=== PATIENT | female | born 1965 | race Caucasian/White ===

== ENCOUNTER → 2019-04-03 | Outpatient (CLI) | payer BC ==
[2019-04-03 15:49] LABS: Basophils # (A) 0.1 k/uL (0-0.2); Basophils % (A) 0 %; Eosinophils # (A) 0.2 k/uL (0-0.7); Eosinophils % (A) 2 %; HCT 42.8 % (34.0-46.0); HGB 14.2 gm/dL (11.4-16.0); Lymphocytes # (A) 3.7 k/uL (1.0-4.8); Lymphocytes % (A) 33 %; MCHC 33.3 g/dL (31.0-37.0); MCV 93.1 fL (80.0-100.0); Mean Platelet Volume 6.4; Monocytes # (A) 0.6 k/uL (0-1.0); Monocytes % (A) 5 %; Neutrophils # (A) 6.6 k/uL (1.3-7.7); Neutrophils % (A) 58 %; Platelet Count 326 k/uL (150-450); RBC 4.59 m/uL (3.80-5.40); RDW 13.2 % (11.5-15.5); WBC 11.3 k/uL (3.8-10.6)
== END | disposition home or self-care (01) ==
LOC: LABPAT 15:16
PROVIDERS: ATTEND Surgery
DX: Z01.818 Encounter for other preprocedural examination (principal); K21.0 Gastro-esophageal reflux disease with esophagitis
CPT/HCPCS: 36415; 85025; 93005

== ENCOUNTER 2019-04-06 07:34 | Day surgery (SDC) | payer BC ==
[2019-04-03 12:13] VITALS: BMI 39.0
[~2019-04-06 07:34] MED LIST: LACTATED RINGERS 1,000 ML IV SCH; LIDOCAINE 1% 20 ML VIAL (10MG/ML) FOR IV START INTRADERMA PRN
[2019-04-06 07:52] VITALS: TEMP 97.6
[2019-04-06] MEDS ORDERED: LACTATED RINGERS 1,000 ML IV ONE (07:53)
[2019-04-06] MEDS ORDERED: PROPOFOL 10 MG/ML 20 ML VIAL IV ONE (08:36)
--- NOTE | 2019-04-06 08:43 | P.GSHP ---
History of Present Illness H&P Date: 04/06/19 Chief Complaint: GERD This a 53-year-old female referred from Dr. Palacio. Patient has had long- standing problems with GERD. She presents today for EGD. Past Medical History Past Medical History: Hyperlipidemia, Hypertension, Osteoarthritis (OA), Thyroid Disorder Additional Past Medical History / Comment(s): HIATAL HERNIA History of Any Multi-Drug Resistant Organisms: None Reported Past Surgical History: Orthopedic Surgery, Tubal Ligation Additional Past Surgical History / Comment(s): HAND SX. HAVING EGD 04/06/19. COLONOSCOPY Past Anesthesia/Blood Transfusion Reactions: No Reported Reaction Smoking Status: Never smoker - Past Family History Sister(s) Family Medical History: Cancer Medications and Allergies Home Medications Medication Instructions Recorded Confirmed Type DULoxetine HCL [Cymbalta] 30 mg PO DAILY 12/23/15 04/03/19 History Enalapril/Hydrochlorothiazide 1 each PO DAILY 12/23/15 04/03/19 History [Vaseretic 10-25 mg] Levothyroxine Sodium [Synthroid] 112 mcg PO DAILY 12/23/15 04/03/19 History Simvastatin [Zocor] 20 mg PO HS 12/23/15 04/03/19 History HYDROcodone/APAP 7.5-325MG [[place] 1 tab PO Q6HR PRN 12/24/15 04/03/19 History 7.5-325] Allergies Allergy/AdvReac Type Severity Reaction Status Date / Time No Known Allergies Allergy Verified 04/03/19 12:01 Surgical - Exam Vital Signs Temp Pulse Resp BP Pulse Ox 97.6 F 82 18 145/75 97 04/06/19 07:51 04/06/19 07:51 04/06/19 07:51 04/06/19 07:51 04/06/19 07:51 - General well developed, well nourished, no distress - Eyes PERRL - ENT normal pinna - Neck no masses - Respiratory normal expansion - Cardiovascular Rhythm: regular - Abdomen Abdomen: soft, non tender Assessment and Plan Assessment: GERD. We'll perform EGD.
--- NOTE | 2019-04-06 08:49 | P.OP ---
Date of Procedure: 04/06/19 Preoperative Diagnosis: GERD Postoperative Diagnosis: Antral gastritis Moderate size hiatal hernia Mild esophagitis Procedure(s) Performed: EGD Anesthesia: MAC Surgeon: Dave Beard Pathology: other (Antrum, esophagus) Condition: stable Disposition: PACU Description of Procedure: Patient's placed on the endoscopy table lateral position. She received IV sedation. The gastroscope placed oropharynx and passed in the esophagus and stomach. Scope then placed through the pylorus. The first and second portion of the duodenum. Normal. Scope summer back the antrum this appeared mildly inflamed a biopsies performed. Scope was unretroflexed and remainder stomach appeared normal. The patient had a moderate size hiatal hernia. The GE junction was at 37 cm. The distal esophagus appeared mildly inflamed. Biopsies performed. The proximal esophagus appeared normal. Scope withdrawn for patient .
[2019-04-06 08:58] VITALS: RESP 16
[2019-04-06 09:17] VITALS: BP 115/77; PULSE 70
== END 2019-04-06 09:35 | disposition home or self-care (01) ==
LOC: ORWHC2ENDO 07:34
PROVIDERS: ATTEND Surgery
DX: K21.0 Gastro-esophageal reflux disease with esophagitis (principal); K29.50 Unspecified chronic gastritis without bleeding; K44.9 Diaphragmatic hernia without obstruction or gangrene; R94.31 Abnormal electrocardiogram [ECG] [EKG]; I10 Essential (primary) hypertension; E78.5 Hyperlipidemia, unspecified; M19.90 Unspecified osteoarthritis, unspecified site; E07.9 Disorder of thyroid, unspecified; K08.89 Other specified disorders of teeth and supporting structures; Z98.890 Other specified postprocedural states; Z98.51 Tubal ligation status; Z80.9 Family history of malignant neoplasm, unspecified; Z79.899 Other long term (current) drug therapy; Z79.890 Hormone replacement therapy; Z79.891 Long term (current) use of opiate analgesic
CPT/HCPCS: 88305; 43239; J2704

== ENCOUNTER 2019-04-09 07:40 | Inpatient (IN) | payer BC ==
[~2019-04-09 07:40] MED LIST changes: +DEXAMETHASONE SOD PHOSPHATE 10 MG/ML 1 ML VIAL IV ONE; +HEPARIN SODIUM,PORCINE 5,000 UNIT/ML 1 ML VIAL SQ ONE; +HYDROmorphone 0.5 MG/0.5 ML SYRINGE IVP PRN; -LACTATED RINGERS 1,000 ML IV SCH; +MIDAZOLAM 2 MG/2 ML VIAL IV PRN; +ONDANSETRON 4 MG/2 ML VIAL IVP ONE; +SCOPOLAMINE 1.5MG/72HR PATCH TRANSDERM ONE
[2019-04-09] MEDS ORDERED: FAMOTIDINE 20 MG/2 ML VIAL IV ONE (08:25)
[2019-04-09] MEDS: LACTATED RINGERS 1,000 ML IV SCH (08:25)
--- NOTE | 2019-04-09 08:45 | P.GSHP ---
History of Present Illness H&P Date: 04/09/19 Chief Complaint: GERD Some 53-year-old female referred from Dr. Palacio.The patient has had long- standing problems with reflux esophagitis. The patient underwent recent EGD is found have evidence of esophagitis. Patient has been well informed on the procedure of laparoscopic Payal fundoplication. The patient is aware the risk of the conversion to the open procedure, risk of injury to the stomach, liver and spleen. The patient is also a risk of recurrent GERD and dysphagia symptoms. The patient understands there is a postoperative diet of full liquids for 2 weeks after surgery. Past Medical History Past Medical History: Hyperlipidemia, Hypertension, Osteoarthritis (OA), Thyroid Disorder Additional Past Medical History / Comment(s): HIATAL HERNIA History of Any Multi-Drug Resistant Organisms: None Reported Past Surgical History: Orthopedic Surgery, Tubal Ligation Additional Past Surgical History / Comment(s): HAND SX. HAVING EGD 04/06/19. COLONOSCOPY Past Anesthesia/Blood Transfusion Reactions: No Reported Reaction Smoking Status: Never smoker - Past Family History Sister(s) Family Medical History: Cancer Medications and Allergies Home Medications Medication Instructions Recorded Confirmed Type DULoxetine HCL [Cymbalta] 30 mg PO DAILY 12/23/15 04/03/19 History Enalapril/Hydrochlorothiazide 1 each PO DAILY 12/23/15 04/03/19 History [Vaseretic 10-25 mg] Levothyroxine Sodium [Synthroid] 112 mcg PO DAILY 12/23/15 04/03/19 History Simvastatin [Zocor] 20 mg PO HS 12/23/15 04/03/19 History HYDROcodone/APAP 7.5-325MG [[place] 1 tab PO Q6HR PRN 12/24/15 04/03/19 History 7.5-325] Allergies Allergy/AdvReac Type Severity Reaction Status Date / Time No Known Allergies Allergy Verified 04/03/19 12:01 Surgical - Exam Vital Signs Temp Pulse Resp BP Pulse Ox 98.3 F 81 16 147/73 95 04/09/19 08:25 04/09/19 08:25 04/09/19 08:25 04/09/19 08:25 04/09/19 08:25 - General well developed, well nourished, no distress - Eyes PERRL - ENT normal pinna - Neck no masses - Respiratory normal expansion - Cardiovascular Rhythm: regular - Abdomen Abdomen: soft, non tender Assessment and Plan Assessment: GERD. We'll perform laparoscopic Payal fundal plication.
[2019-04-09] MEDS ORDERED: GLYCOPYRROLATE 0.2 MG/ML 2 ML VIAL ONE (09:03)
[2019-04-09] MEDS ORDERED: NEOSTIGMINE 1 MG/ML 10 ML VIAL ONE (09:03)
[2019-04-09] MEDS ORDERED: SUCCINYLCHOLINE CHLORIDE 100 MG/5 ML SYR IV ONE (09:03)
[2019-04-09] MEDS ORDERED: KETAMINE 10 MG/ML 20 ML VIAL ONE (09:03)
[2019-04-09] MEDS ORDERED: fentaNYL (PF) 50 MCG/ML 2 ML AMP ONE (09:03)
[2019-04-09] MEDS ORDERED: PROPOFOL 10 MG/ML 20 ML VIAL IV ONE (09:03)
[2019-04-09] MEDS ORDERED: LIDOCAINE 1% INJ 10MG/ML (20 ML MDV) ONE (09:03)
[2019-04-09] MEDS ORDERED: MIDAZOLAM 2 MG/2 ML VIAL ONE (09:03)
[2019-04-09] MEDS ORDERED: ROCURONIUM BROMIDE 10 MG/ML 10 ML VIAL IV ONE (09:03)
[2019-04-09] MEDS ORDERED: BUPIVACAIN-EPI 0.25%-1:200,000 30 ML VIAL SQ ONE (09:35)
[2019-04-09] MEDS ORDERED: ONDANSETRON 4 MG/2 ML VIAL IVP PRN (10:09)
--- NOTE | 2019-04-09 10:09 | P.OP ---
Date of Procedure: 04/09/19 Preoperative Diagnosis: GERD Postoperative Diagnosis: GERD Procedure(s) Performed: Laparoscopic Payal fundal plication Anesthesia: AMIEA Surgeon: Dave Beard Estimated Blood Loss (ml): 5 Pathology: none sent Condition: stable Disposition: PACU Description of Procedure: Harmonic Payal
[2019-04-09] MEDS: METOCLOPRAMIDE 5 MG/ML 2 ML VIAL IVP SCH ×2 (11:50→19:32)
[2019-04-09 15:08] VITALS: BMI 40.8
--- NOTE | 2019-04-09 15:55 | P.CONS ---
History of Present Illness - Reason for Consult Management of hypertension - History of Present Illness Patient is pleasant 53-year-old female admitted for elective nissin's fundoplication patient's oxacillin underwent surgery patient is complaining of some discomfort in the epigastric area. Patient denied any fever chills nausea vomiting at this time patient didn't pass gas yet. Patient does have history of hypertension did not take her and have his medications today and her blood pressure is expected to be lower. Review of Systems REVIEW OF SYSTEMS: CONSTITUTIONAL: No fever, no malaise, no fatigue. HEENT: No recent visual problems or hearing problems. Denied any sore throat. CARDIOVASCULAR: No chest pain, orthopnea, PND, no palpitations, no syncope. PULMONARY: No shortness of breath, no cough, no hemoptysis. GASTROINTESTINAL: No diarrhea, no nausea, no vomiting, no abdominal pain. NEUROLOGICAL: No headaches, no weakness, no numbness. HEMATOLOGICAL: Denies any bleeding or petechiae. GENITOURINARY: Denies any burning micturition, frequency, or urgency. MUSCULOSKELETAL/RHEUMATOLOGICAL: Denies any joint pain, swelling, or any muscle pain. ENDOCRINE: Denies any polyuria or polydipsia. The rest of the 14-point review of systems is negative. Past Medical History Past Medical History: Hyperlipidemia, Hypertension, Osteoarthritis (OA), Thyroid Disorder Additional Past Medical History / Comment(s): HIATAL HERNIA History of Any Multi-Drug Resistant Organisms: None Reported Past Surgical History: Orthopedic Surgery, Tubal Ligation Additional Past Surgical History / Comment(s): HAND SX. HAVING EGD 04/06/19. COLONOSCOPY Past Anesthesia/Blood Transfusion Reactions: No Reported Reaction Past Psychological History: No Psychological Hx Reported Smoking Status: Never smoker Past Alcohol Use History: None Reported Past Drug Use History: None Reported - Past Family History Sister(s) Family Medical History: Cancer Medications and Allergies Home Medications Medication Instructions Recorded Confirmed Type DULoxetine HCL [Cymbalta] 30 mg PO DAILY 12/23/15 04/03/19 History Enalapril/Hydrochlorothiazide 1 each PO DAILY 12/23/15 04/03/19 History [Vaseretic 10-25 mg] Levothyroxine Sodium [Synthroid] 112 mcg PO DAILY 12/23/15 04/03/19 History Simvastatin [Zocor] 20 mg PO HS 12/23/15 04/03/19 History HYDROcodone/APAP 7.5-325MG [[place] 1 tab PO Q6HR PRN 12/24/15 04/03/19 History 7.5-325] Allergies Allergy/AdvReac Type Severity Reaction Status Date / Time No Known Allergies Allergy Verified 04/03/19 12:01 Physical Exam Vitals: Vital Signs Temp Pulse Pulse Resp BP Pulse Ox 04/09/19 15:06 18 04/09/19 13:05 54 L 14 155/85 98 04/09/19 12:35 54 L 14 148/90 94 L 04/09/19 12:05 54 L 14 155/85 98 04/09/19 11:50 57 L 14 140/80 95 04/09/19 11:35 51 L 14 148/90 93 L 04/09/19 11:20 98.1 F 50 L 14 153/79 94 L 04/09/19 11:02 52 L 16 146/69 92 L 04/09/19 10:49 49 L 16 149/67 96 04/09/19 10:34 53 L 16 151/70 99 04/09/19 10:19 97 F L 79 17 164/98 96 04/09/19 08:25 98.3 F 81 16 147/73 95 Intake and Output 04/09/19 04/09/19 04/09/19 06:59 14:59 22:59 Intake Total 1350 Output Total 5 Balance 1345 Intake: IV 1350 Output: Estimated Blood Loss 5 Other: Weight 95 kg 95 kg PHYSICAL EXAMINATION: GENERAL: The patient is alert and oriented x3, not in any acute distress. Well developed, well nourished. HEENT: Pupils are round and equally reacting to light. EOMI. No scleral icterus. No conjunctival pallor. Normocephalic, atraumatic. No pharyngeal erythema. No thyromegaly. CARDIOVASCULAR: S1 and S2 present. No murmurs, rubs, or gallops. PULMONARY: Chest is clear to auscultation, no wheezing or crackles. ABDOMEN: Soft, nontender, nondistended, normoactive bowel sounds. No palpable organomegaly. MUSCULOSKELETAL: No joint swelling or deformity. EXTREMITIES: No cyanosis, clubbing, or pedal edema. NEUROLOGICAL: Gross neurological examination did not reveal any focal deficits. SKIN: No rashes. Assessment and Plan Plan: Hypertension: Patient blood pressure is expected to low post surgery because of which I'll hold off on antidepressant medications and depending on her blood pressure tomorrow we'll start as needed. Continue with IV fluids at this time -Status post Payal fundoplication postoperative day 0 pain management and due to prophylaxis per primary service -hyperlipidemia - hypothyroidism Medication reconciliation was done and appropriate to her home medications were resumed
[2019-04-09] MEDS: HYDROmorphone 1 MG/ML 1 ML SYRINGE IVP PRN ×2 (16:08→20:43)
[2019-04-09] MEDS: D5-0.45% NACL WITH KCL 20MEQ/L 1,000 ML IV SCH ×2 (16:09→19:37)
--- NOTE | 2019-04-09 16:25 | FL ---
EXAMINATION TYPE: FL esophagus cervic/pharynx DATE OF EXAM: 04/09/2019 LIMITED UGI-ESOPHAGRAM: CLINICAL HISTORY: Reflux, status post Eliseo fundoplication TECHNIQUE: Limited esophagram is performed utilizing 30 oz of Isovue-370. A total of 29 seconds of f luoroscopic time was utilized during procedure. Images: 5 FINDINGS: The patient swallowed contrast without difficulty or delay. Esophageal peristalsis and mo tility are within normal limits. There is good flow of contrast along the diaphragmatic hiatus into t he stomach, there is no evidence of contrast extravasation to suggest leak. No persistent hiatal miles ia is seen. IMPRESSION: No evidence of leak or significant obstruction status post Eliseo fundoplication surgery earlier today.
[2019-04-09] MEDS ORDERED: ATORVASTATIN 10 MG TAB PO SCH (21:00)
[2019-04-10] MEDS: METOCLOPRAMIDE 5 MG/ML 2 ML VIAL IVP SCH ×3 (00:53→13:09)
[2019-04-10] MEDS: D5-0.45% NACL WITH KCL 20MEQ/L 1,000 ML IV SCH ×2 (00:53→10:55)
[2019-04-10] MEDS: HYDROmorphone 1 MG/ML 1 ML SYRINGE IVP PRN ×2 (00:54→06:36)
[2019-04-10 05:57] VITALS: RESP 18
[2019-04-10] MEDS ORDERED: LEVOTHYROXINE 112 MCG TAB PO SCH (06:30)
[2019-04-10] MEDS: LACTATED RINGERS 1,000 ML IV SCH (06:37)
[2019-04-10] MEDS ORDERED: HYDROcodone/APAP 7.5-325MG 1 EACH TAB PO PRN (08:01)
[2019-04-10] MEDS ORDERED: DULoxetine HCL 30 MG CAPSULE.DR PO SCH (09:00)
[2019-04-10] MEDS ORDERED: ENOXAPARIN 40 MG/0.4 ML SYRINGE SQ SCH (09:00)
--- NOTE | 2019-04-10 11:58 | P.PN ---
Subjective Progress Note Date: 04/10/19 Principal diagnosis: Patient is pleasant 53-year-old female admitted for elective nissin's fundoplication patient's oxacillin underwent surgery patient is complaining of some discomfort in the epigastric area. Patient denied any fever chills nausea vomiting at this time patient didn't pass gas yet. Patient does have history of hypertension did not take her hypertensive medications today and her blood pressure is expected to be lower. 04/10/2019 Patient is sitting up in bed in no acute distress no acute overnight issues. Patient continues to have some mild epigastric discomfort but states it is much better than yesterday. Instructed the patient to continue with incentive spirometer at least 10 times every hour while awake. Patient's blood pressure slightly elevated and will resume her home medications. Patient is expected to be discharged today. Currently patient denies any chest pain, shortness of breath, or palpitations. Patient is afebrile. Patient denies any nausea or vomiting and has been tolerating diet. Objective - Vital Signs Vital signs: Vital Signs Temp 98.2 F 04/10/19 00:54 Pulse 89 04/10/19 04:05 Resp 18 04/10/19 04:05 BP 153/96 04/10/19 04:05 Pulse Ox 93 L 04/10/19 04:05 Intake & Output 04/09/19 04/10/19 04/10/19 18:59 06:59 18:59 Intake Total 1350 1100 Output Total 5 Balance 1345 1100 Weight 95 kg Intake: IV 1350 Intake, IV Titration 500 Amount D5-0.45% NaCl with KCl 500 20Meq/l 1,000 ml @ 125 mls/hr IV .Q8H [facility] Rx#: [id number] Oral 600 Output: Estimated Blood Loss 5 Other: # Voids 1 2 - Exam GENERAL: The patient is alert and oriented x3, not in any acute distress. Well developed, well nourished. HEENT: Pupils are round and equally reacting to light. EOMI. No scleral icterus. No conjunctival pallor. Normocephalic, atraumatic. No pharyngeal erythema. No thyromegaly. CARDIOVASCULAR: S1 and S2 present. No murmurs, rubs, or gallops. PULMONARY: Chest is clear to auscultation, no wheezing or crackles. ABDOMEN: Soft, nontender, nondistended, normoactive bowel sounds. No palpable organomegaly. MUSCULOSKELETAL: No joint swelling or deformity. EXTREMITIES: No cyanosis, clubbing, or pedal edema. NEUROLOGICAL: Gross neurological examination did not reveal any focal deficits. SKIN: No rashes. Assessment and Plan Assessment: -Hypertension: Patient blood pressure is expected to be low post surgery because of which I'll hold off on antihypertensive medications and depending on her blood pressure tomorrow we'll start as needed. Antihypertensive medications will be resumed at this time -Status post Payal fundoplication postoperative day 1. pain management and DVT prophylaxis per primary service -hyperlipidemia -hypothyroidism Medication reconciliation was done and appropriate to her home medications were resumed
[2019-04-10] MEDS ORDERED: HYDROCHLOROTHIAZIDE 25 MG TAB PO SCH ×2 (12:00)
[2019-04-10] MEDS ORDERED: LISINOPRIL 20 MG TAB PO SCH (12:00)
[2019-04-10 12:06] VITALS: BP 129/83; PULSE 72; TEMP 97.8
--- NOTE | 2019-04-10 13:53 | P.DS ---
Providers Date of admission: 04/09/19 07:40 Expected date of discharge: 04/10/19 Attending physician: Dave Beard Primary care physician: Won Palacio Hospital Course: 53-year-old female who underwent laparoscopic Payal fundoplication on 04/09/2019. Patient is doing well postoperatively without any immediate complications. Postoperative esophagram negative for leak or obstruction. Patient is tolerating clear liquid diet. Pain control on oral medications. Vital signs are stable. She is stable for discharge home today. Please see EMR for further hospital course details. Discharge diagnosis 1. GERD, status post laparoscopic Payal fundoplication Nurse practitioner note has been reviewed by physician. Signing provider agrees with the documented findings, assessment, and plan of care. Patient Condition at Discharge: Stable Plan - Discharge Summary Discharge Rx Participant: No New Discharge Prescriptions: Continue Levothyroxine Sodium [Synthroid] 112 mcg PO DAILY Enalapril/Hydrochlorothiazide [Vaseretic 10-25 mg] 1 each PO DAILY DULoxetine HCL [Cymbalta] 30 mg PO DAILY Simvastatin [Zocor] 20 mg PO HS HYDROcodone/APAP 7.5-325MG [[place] 7.5-325] 1 tab PO Q6HR PRN PRN Reason: Pain Discharge Medication List DULoxetine HCL [Cymbalta] 30 mg PO DAILY 12/23/15 [History] Enalapril/Hydrochlorothiazide [Vaseretic 10-25 mg] 1 each PO DAILY 12/23/15 [History] Levothyroxine Sodium [Synthroid] 112 mcg PO DAILY 12/23/15 [History] Simvastatin [Zocor] 20 mg PO HS 12/23/15 [History] HYDROcodone/APAP 7.5-325MG [[place] 7.5-325] 1 tab PO Q6HR PRN 12/24/15 [History] Follow up Appointment(s)/Referral(s): Dave Beard MD [STAFF PHYSICIAN] - 04/23/19 9:00 am Patient Instructions/Handouts: *Surgery [facility] - ([facility]) Lap Payal Fundiplication Post-Op Instructions Activity/Diet/Wound Care/Special Instructions: No driving while taking [place] No lifting over 10 pounds You may shower. No soaking or tub baths Very light activity until you are reevaluated at your follow up appointment with your surgeon Full liquid/soft diet for two weeks Discharge Disposition: HOME SELF-CARE
--- NOTE | 2019-04-17 22:49 | CDI ---
Documentation Clarification Form Date: 04/18/19 From: Aidan Middleton Phone: If you have a question about this query, please contact Yudith Jennings, Anode Machine Operator at [phone] between 8am and 5pm. Admit Date: 04/09/19 Discharge Date: 04/10/19 Patient Name: Ketty Elam Visit Number: [id number] ATTENTION: The Clinical Documentation Specialists (CDI) and [facility] Coding Staff appreciate your assistance in clarifying documentation. Please respond to the clarification below the line at the bottom and electronically sign. The CDI & [facility] Coding staff will review the response and follow-up if needed. Please note: Queries are made part of the Legal Health Record. If you have any questions, please contact the author of this message via ITS. Dear Dave Grimm., Patient admitted with GERD and underwent Payal Fundoplication. Patient has been described as well developed, well nourished. History/Risk Factors: GERD, Payal fundoplication., Tubal ligation,hypothyroidism Clinical Indicators: Patients weight is : 95 kg Patients height is : 5 ft Calculated BMI is 40.9 In order to capture the severity of condition associated with patient BMI of 40.9 a clinical diagnosis needs to be documented by the physician. Please clarify: Overweight Obesity, Class 1 Obesity, Class 2 Extreme (Morbid) (severe) obesity Other, please specify See addendum note MTDD
== END 2019-04-10 13:30 | disposition home or self-care (01) | DRG 327 ==
LOC: 2ORMAIN 07:40 → 6PED 10:57 → 3NMEDONC 04-10 04:36
PROVIDERS: ADMIT Surgery; ATTEND Surgery
PROC: 0DV44ZZ Restriction of Esophagogastric Junction, Percutaneous Endoscopic Approach (ICD-10-PCS; principal; 2019-04-09 09:00)
DX: K21.9 Gastro-esophageal reflux disease without esophagitis (principal); Z68.41 Body mass index [BMI] 40.0-44.9, adult; I10 Essential (primary) hypertension; E78.5 Hyperlipidemia, unspecified; E03.9 Hypothyroidism, unspecified; E66.01 Morbid (severe) obesity due to excess calories; M19.90 Unspecified osteoarthritis, unspecified site; Z79.899 Other long term (current) drug therapy; Z98.51 Tubal ligation status; Z79.890 Hormone replacement therapy; Z98.890 Other specified postprocedural states; Z80.9 Family history of malignant neoplasm, unspecified
CPT/HCPCS: 74210

== ENCOUNTER → 2019-09-11 | Outpatient (CLI) | payer BC ==
--- NOTE | 2019-09-11 12:45 | NM ---
Nuclear medicine hepatobiliary scan. HISTORY: Pain. DOSAGE: The patient received 1.8 micrograms of CCK and 5.2 mCi of Technetium 99m Choletec. FINDINGS: There is normal hepatic extraction. The gallbladder is seen by 23 minutes. There is bilia ry to bowel clearance by 20 minutes. Ejection fraction is 89%. IMPRESSION: 1. Normal radiotracer filling of the gallbladder. 2. Ejection fraction of 89%. This can occasionally be seen with hyperdynamic gallbladder. Correlate c vanically.
--- NOTE | 2019-09-11 13:32 | FL ---
EXAMINATION TYPE: FL UGI w esophagus w KUB DATE OF EXAM: 09/11/2019 LIMITED UGI-ESOPHAGRAM: CLINICAL HISTORY: History of Eliseo Fundoplication surgery April 2019 with popping injury 2 weeks ago. Pain nausea vomiting and reflux since episode per patient. TECHNIQUE: Limited esophagram is performed utilizing 20 oz of contrast(EZ Paque). A total of 11 seco nds of fluoroscopic time was utilized during procedure. 27 spot images saved to PACS. Comparison: Prior esophagram April 09, 2019 FINDINGS: The patient swallowed contrast without difficulty or delay. Esophageal peristalsis and mo tility are within normal limits. There is good flow of contrast along the diaphragmatic hiatus into t he stomach, there is no evidence of contrast extravasation to suggest leak. No recurrent hiatal herni a is seen. Patient remains asymptomatic. IMPRESSION: No evidence of leak, significant obstruction, or recurrent hiatal hernia.
== END | disposition home or self-care (01) ==
LOC: RADFLMAIN 10:37
PROVIDERS: ATTEND Surgery
DX: K81.1 Chronic cholecystitis (principal); R13.10 Dysphagia, unspecified
CPT/HCPCS: 78227; A9537; J2805

== ENCOUNTER → 2019-09-21 | Outpatient (CLI) | payer BC | END | disposition home or self-care (01) | LOC: LABWHC1 08:42 | PROVIDERS: ATTEND Surgery | DX: Z11.59 Encounter for screening for other viral diseases (principal) | CPT/HCPCS: 87635 ==

== ENCOUNTER 2019-09-26 10:43 | Day surgery (SDC) | payer BC ==
[2019-09-21 11:38] VITALS: BMI 39.6
[~2019-09-26 10:43] MED LIST changes: +ACETAMINOPHEN TAB 500 MG TAB PO ONE; -DEXAMETHASONE SOD PHOSPHATE 10 MG/ML 1 ML VIAL IV ONE; +LACTATED RINGERS 1,000 ML IV SCH; +LIDOCAINE 1% (10MG/ML) FOR IV START INTRADERMA PRN; -LIDOCAINE 1% 20 ML VIAL (10MG/ML) FOR IV START INTRADERMA PRN; -MIDAZOLAM 2 MG/2 ML VIAL IV PRN; -ONDANSETRON 4 MG/2 ML VIAL IVP ONE; -SCOPOLAMINE 1.5MG/72HR PATCH TRANSDERM ONE; +fentaNYL (PF) 50 MCG/ML 2 ML AMP IV PRN
[2019-09-26] MEDS ORDERED: LACTATED RINGERS 1,000 ML IV ONE (11:02)
[2019-09-26] MEDS: ONDANSETRON 4 MG/2 ML VIAL IVP ONE ×2 (11:05→13:28)
[2019-09-26] MEDS ORDERED: BUPIVACAINE (PF) 0.5% 30 ML VIAL SQ ONE ×2 (11:43→12:50)
[2019-09-26] MEDS ORDERED: SUCCINYLCHOLINE CHLORIDE 100 MG/5 ML SYR IV ONE (12:29)
[2019-09-26] MEDS ORDERED: NEOSTIGMINE 1 MG/ML 10 ML VIAL ONE (12:29)
[2019-09-26] MEDS ORDERED: KETAMINE 10 MG/ML 20 ML VIAL ONE (12:29)
[2019-09-26] MEDS ORDERED: GLYCOPYRROLATE 0.2 MG/ML 2 ML VIAL ONE (12:29)
[2019-09-26] MEDS ORDERED: PROPOFOL 10 MG/ML 20 ML VIAL IV ONE (12:29)
[2019-09-26] MEDS ORDERED: ROCURONIUM BROMIDE 10 MG/ML 5 ML VIAL IV ONE (12:29)
[2019-09-26] MEDS ORDERED: fentaNYL (PF) 50 MCG/ML 2 ML AMP ONE (12:29)
[2019-09-26] MEDS ORDERED: MIDAZOLAM 2 MG/2 ML VIAL ONE (12:29)
[2019-09-26] MEDS ORDERED: KETOROLAC 30 MG/ML 1 ML VIAL ONE (12:29)
[2019-09-26] MEDS ORDERED: LIDOCAINE 1% INJ 10MG/ML (20 ML MDV) ONE (12:29)
--- NOTE | 2019-09-26 13:09 | P.GSHP ---
History of Present Illness H&P Date: 09/26/19 Chief Complaint: Right upper quadrant pain This a fixed central female presents today for laparoscopic cholestatic. Patient went to remove quadrant pain. Her recent I scan shows abnormal ejection fraction consistent with chronic cholecystitis. Past Medical History Past Medical History: Asthma, Fibromyalgia, Hyperlipidemia, Hypertension, Osteoarthritis (OA), Pneumonia, Thyroid Disorder Additional Past Medical History / Comment(s): migraines, varicose veins, History of Any Multi-Drug Resistant Organisms: None Reported Past Surgical History: Orthopedic Surgery, Tonsillectomy, Tubal Ligation Additional Past Surgical History / Comment(s): repair of hiatal hernia, left hand/thumb surgery, Past Anesthesia/Blood Transfusion Reactions: No Reported Reaction Smoking Status: Never smoker - Past Family History Sister(s) Family Medical History: Cancer Medications and Allergies Home Medications Medication Instructions Recorded Confirmed Type DULoxetine HCL [Cymbalta] 30 mg PO DAILY 12/23/15 09/21/19 History Levothyroxine Sodium [Synthroid] 112 mcg PO DAILY 12/23/15 09/21/19 History Simvastatin [Zocor] 20 mg PO DAILY 12/23/15 09/21/19 History Albuterol Inhaler [Ventolin Hfa 2 puff INHALATION Q4HR PRN 09/21/19 09/21/19 History Inhaler] Albuterol Nebulized [Ventolin 2.5 mg INHALATION Q6H PRN 09/21/19 09/21/19 History Nebulized] Enalapril [Vasotec] 10 mg PO DAILY 09/21/19 09/21/19 History Hydrochlorothiazide 25 mg PO QAM 09/21/19 09/21/19 History Hydrocodone/Acetaminophen [[place] 1 tab PO Q6H 09/21/19 09/21/19 History 10-325] Allergies Allergy/AdvReac Type Severity Reaction Status Date / Time No Known Allergies Allergy Verified 09/21/19 11:26 Surgical - Exam Vital Signs Temp Pulse Resp BP Pulse Ox 97.8 F 92 16 141/71 96 09/26/19 10:58 09/26/19 10:58 09/26/19 10:58 09/26/19 10:58 09/26/19 10:58 - General well developed, well nourished, no distress - Eyes PERRL - ENT normal pinna - Neck no masses - Respiratory normal expansion - Cardiovascular Rhythm: regular - Abdomen Abdomen: soft, non tender Assessment and Plan Assessment: Chronically cholecystitis We'll perform laparoscopic cholecystectomy
--- NOTE | 2019-09-26 13:10 | P.OP ---
Date of Procedure: 09/26/19 Preoperative Diagnosis: Cholecystitis Postoperative Diagnosis: Cholecystitis Procedure(s) Performed: Laparoscopic cholecystectomy Anesthesia: BLANCHE Surgeon: Dave Beard Estimated Blood Loss (ml): 5 Pathology: other (Gallbladder) Condition: stable Disposition: PACU Description of Procedure: The patient was placed on the operating table. The patient received a general endotracheal tube anesthesia. The patients abdomen was prepped and draped in the usual sterile fashion. Through an infraumbilical stab incision, the fascia of the anterior abdominal wall was grasped with a pair of Kochers and then the Veress needle was placed in the peritoneal cavity. Position of the Veress needle was confirmed with positive drop test. The abdomen was then insufflated. After adequate insufflation, the 10 mm trocar was placed in the peritoneal cavity. Following this the laparoscope was placed in the peritoneal cavity. The patient was placed in the head-up, right side up position and then a 5 mm trocar was placed in the right lateral and right subcostal position under direct visualization. A 8 mm trocar was placed in the epigastric position. The gallbladder was grasped in the fundus and infundibulum. Traction on the gallbladder was placed in the lateral and the cephalad positions. The triangle of Calot was visualized.. The cystic duct was bluntly dissected until the union of the cystic duct and common bile duct was seen. A critical view of safety was achieved. The cystic duct was then divided and sealed with the Harmonic scissors. A PDS Endoloop was then placed throughout the cystic duct stump. The cystic artery divided and sealed with the Harmonic scissors. The gallbladder was then removed from the liver bed using Harmonic scissors. The gallbladder was then extracted through the epigastric port site. Operative field was checked for any bleeding spots and Harmonic scissors was used to coagulate the liver bed. The abdomen was irrigated. The trocars were removed. The skin was closed using interrupted 3-0 Vicryl suture. Dermabond dressing were applied. The patient tolerated the procedure well.
[2019-09-26 13:18] VITALS: TEMP 98
[2019-09-26] MEDS: HYDROmorphone 1 MG/ML 1 ML SYRINGE IVP ONE ×3 (13:29→14:06)
[2019-09-26 15:06] VITALS: BP 127/78; PULSE 78; RESP 18
== END 2019-09-26 15:25 | disposition home or self-care (01) ==
LOC: OR 10:43
PROVIDERS: ATTEND Surgery
DX: K81.2 Acute cholecystitis with chronic cholecystitis (principal); I10 Essential (primary) hypertension; J45.909 Unspecified asthma, uncomplicated; M79.7 Fibromyalgia; M19.90 Unspecified osteoarthritis, unspecified site; E78.5 Hyperlipidemia, unspecified; E07.9 Disorder of thyroid, unspecified; I83.90 Asymptomatic varicose veins of unspecified lower extremity; G43.909 Migraine, unspecified, not intractable, without status migrainosus; Z87.01 Personal history of pneumonia (recurrent); Z98.51 Tubal ligation status; Z90.89 Acquired absence of other organs; Z98.890 Other specified postprocedural states; Z80.9 Family history of malignant neoplasm, unspecified; Z79.890 Hormone replacement therapy; Z79.899 Other long term (current) drug therapy; Z79.891 Long term (current) use of opiate analgesic
CPT/HCPCS: 47562; J1644; J0690; J2405; J1170 ×2; 88304